=== PATIENT | male | born 1965 | race African-American/Black ===

== ENCOUNTER 2019-06-25 18:24 | Inpatient (IN) | payer MEDICAID ==
[~2019-06-25] VITALS: Ht 167.6 cm; Wt 79.4 kg
[2019-06-25] MEDS ORDERED: CIPRO500 MG PO (18:35)
[2019-06-25] MEDS ORDERED: ROCEPHIN 1 GM/D51 G1 IM (18:35)
[2019-06-25] MEDS ORDERED: NORVASC10 MG PO (18:36)
[2019-06-25] MEDS ORDERED: SMZ-TMP DS 800-1 TAB PO (18:36)
[2019-06-25] MEDS ORDERED: NOVOLIN 70/30 110 ML (18:36)
[2019-06-25] MEDS ORDERED: NOVOLIN 70/30 110 ML SC (18:37)
[2019-06-25] MEDS ORDERED: PAMELOR 25 MG C25 MG PO (18:37)
[2019-06-25] MEDS ORDERED: COZAAR100 MG PO (18:38)
[2019-06-25 18:57] LABS: HEMATOCRIT 31.3 % (42.0-54.0); HEMOGLOBIN 9.7 g/dL (13.5-17.5); LYMPHOCYTES 13.7 % (15-50); MCH 25.1 pg (26.0-34.0); MCV 80.9 fL (80.0-100.0); MEAN PLATELET VOLUME 8.5 fL (7.4-10.4); NEUTROPHILS 79.7 % (40-80); RBC 3.87 10x6/uL (4.20-6.10); RDW 13.2 % (11.5-14.5); WBC 10.8 10x3/uL (4.8-10.8)
[2019-06-25 18:58] LABS: PLATELET COUNT 721 10x3/uL (130-400)
--- NOTE | 2019-06-25 18:59 | NUR ---
DR. RUANO AT BEDSIDE FOR PATIENT EVAL.
--- NOTE | 2019-06-25 19:06 | NUR ---
PATIENT NOT FROM OR IN [place], PATIENT TRANSPORTED [facility] [place] [facility]
[2019-06-25 19:18] LABS: ANION GAP 12.7 mmol/L (8-16); CALCIUM 9.5 mg/dL (8.5-10.1); CARBON DIOXIDE 25.9 mmol/L (21.0-32.0); CREATININE - SERUM 1.5 mg/dL (0.6-1.3); POTASSIUM - SERUM 4.6 mmol/L (3.5-5.1)
[2019-06-25 19:23] LABS: ALBUMIN 2.7 g/dL (3.4-5.0); BILIRUBIN - TOTAL 0.11 mg/dL (0.2-1.3); PROTEIN - SERUM 9.4 g/dL (6.4-8.2)
--- NOTE | 2019-06-25 20:00 | NUR ---
ADMITTED TO ROOM ALERT AND ORIENTIATED, WOUND TO RIGHT PLANTAR ASPECT AND 2ND TOE STATES IS DIABETIC AND THATS HOW IT STARTED, ORIENTIATED TO ROOM, MARU AT BEDSIDE, SEE ASSESSMENT, CALL LIGHT IN REACH,
[2019-06-25 22:21] LABS: INR 1.15 (0.85-1.17); PROTIME 14.6 SECONDS (11.6-15.0)
[2019-06-25 22:22] LABS: APTT 36.9 SECONDS (22.8-39.4)
[2019-06-25 22:42] VITALS: BP 132/77; BMI 28.3
[2019-06-26 00:20] VITALS: BP 101/61
[2019-06-26 04:00] VITALS: BP 114/77
[2019-06-26 04:47] LABS: HEMATOCRIT 28.6 % (42.0-54.0); MCH 25.4 pg (26.0-34.0); MCHC 31.5 g/dL (31.0-37.0); MCV 80.8 fL (80.0-100.0); MEAN PLATELET VOLUME 8.4 fL (7.4-10.4); NEUTROPHILS 72.7 % (40-80); PLATELET COUNT 656 10x3/uL (130-400); RBC 3.54 10x6/uL (4.20-6.10); RDW 13.2 % (11.5-14.5)
[2019-06-26 05:11] LABS: ALBUMIN 2.3 g/dL (3.4-5.0); BILIRUBIN - TOTAL 0.17 mg/dL (0.2-1.3); CALCIUM 8.9 mg/dL (8.5-10.1); CARBON DIOXIDE 24.8 mmol/L (21.0-32.0); CREATININE - SERUM 1.6 mg/dL (0.6-1.3); MAGNESIUM - SERUM 2.1 mg/dL (1.8-2.4); POTASSIUM - SERUM 4.8 mmol/L (3.5-5.1); PROTEIN - SERUM 8.1 g/dL (6.4-8.2)
--- NOTE | 2019-06-26 06:55 | NUR ---
ALERT AND ORIENTED. CO @ BS. NPO AFTER MIDNIGHT FOR PROCEDURE TODAY. NO C/O PAIN. NO S/S OF ACUTE DISTRESS NOTED. RIGHT FOOT CELLULITIS. IV TO LEFT FOREARM, NS INFUSING @ 75ML/HR. SITE PATENT WITHOUT REDNESS OR SWELLING. DENIES ANY NEEDS AT THIS TIME. CALL LIGHT IN REACH. WILL CONTINUE TO MONITOR.
[2019-06-26 08:17] VITALS: BP 122/79
--- NOTE | 2019-06-26 09:19 | MORECARE ---
CASE MANAGEMENT DISCHARGE SUMMARY PATIENT: ODELL GRANDE UNIT: [id number] ADM DATE: 06/25/19 AGE: 53 : 67 SEX: M ROOM/BED: D.2205 AUTHOR: YULY MARTINEZ PHYSICIAN: REFERRING PHYSICIAN: ABENA BALES MD DATE OF SERVICE: 06/26/19 Discharge Plan Patient Name: ODELL GRANDE Facility: [facility]:[place] : 1965 Planned Disposition: Court\Law Enforcement Anticipated Discharge Date: Discharge Date: Expected LOS: Initial Reviewer: [email or web address] Initial Review Date: 06/26/2019 Generated: 06/26/19 10:19 am Comments DCP- Discharge Planning Updated by [email or web address]: Tiana Solo on 06/26/19 8:[address] Patient Name: ODELL GRANDE Admission Status: ER Accout number: [id number] Admission Date: 06-25-2019 : 1965 Admission Diagnosis: Attending: ABENA BALES Current LOS: 1 Anticipated DC Date: Planned Disposition: Court\Law Enforcement Primary Insurance: MEDICAID LONG-TERM PENDING Discharge Planning Comments: DC PLAN: Return to [facility]/[place] DC NEEDS: Escort back to [facility]/[place]. Patient is currently an inmate at [facility]. He will return there upon discharge from hospital. He will transport back via AD arrangements. CM will continue to follow and assist as needed with dc plans/needs. Fish Icer: Tiana Jamietito Patient Name: ODELL GRANDE Page [phone] at 0919 All edits/amendments must be made on the electronic document DICTATION DATE: 06/26/19918 E MARKETING SPECIALIST: MACHO 06/26/19918 RPT#: [id number] DC DATE: STATUS: ADM IN [facility] [address] [place] [address] END OF REPORT
[2019-06-26 09:21] LABS: UDS - AMPHET NEGATIVE QUAL (NEGATIVE); UDS - BARB NEGATIVE QUAL (NEGATIVE); UDS - BENZO NEGATIVE QUAL (NEGATIVE); UDS - COCAINE NEGATIVE QUAL (NEGATIVE); UDS - OPIATE NEGATIVE QUAL (NEGATIVE); UDS - PCP NEGATIVE QUAL (NEGATIVE); UDS - THC NEGATIVE QUAL (NEGATIVE)
[2019-06-26 10:06] LABS: BACTERIA FEW /hpf (NEGATIVE); BILIRUBIN NEGATIVE (NEGATIVE); EPITHELIAL CELLS OCC /hpf (0-5); GLUCOSE 50 mg/dL (NEGATIVE); KETONE NEGATIVE (NEGATIVE); NITRITE NEGATIVE (NEGATIVE); RED CELLS - URINE 0-5 /hpf (0-5); SPECIFIC GRAVITY 1.015 (1.005-1.020); UROBILINOGEN NORMAL (NORMAL); WHITE CELLS - URINE RARE /hpf (NEGATIVE)
--- NOTE | 2019-06-26 10:30 | NUR ---
GAVE PATIENT PRE OP MEDS
--- NOTE | 2019-06-26 11:57 | NUR ---
I have reviewed this patient and I concur with the Shift Assessment completed by the Licensed Practical Nurse today this shift.
--- NOTE | 2019-06-26 12:00 | NUR ---
TAKEN TO SURGERY BY OR STAFF
[2019-06-26 14:02] VITALS: BP 120/78
--- NOTE | 2019-06-26 14:04 | NUR ---
RECEIVED PATIENT FROM RECOVERY. ALERT AND ORIENTED. NO C/O PAIN. NO S/S OF ACUTE DISTRESS NOTED. DRESSING TO RIGHT FOOT, C/D/I. VITALS WNL. DENIES ANY NEEDS AT THIS TIME. CO @ BS. CALL LIGHT IN REACH. WILL CONTINUE TO MONITOR.
--- NOTE | 2019-06-26 16:41 | NUR ---
PT HAD SURGERY TODAY ON HIS RT FOOT. US CANNOT BE DONE WITH DRESSINGS IN PLACE. PER JEANNE Gomez RN, DRESSINGS CANNOT BE MOVED TONIGHT BUT CAN BE MOVED TOMORROW. DO U/S TOMORROW. LIZZETTE JACOME PT INFORMED
[2019-06-26 17:59] VITALS: BP 136/74
--- NOTE | 2019-06-26 18:16 | NUR ---
MRI RT FOOT ORDERED BY DR HASSAN. IN LOOKING AT PATIENTS PRIOR XRAY THERE IS A METAL FOREIGN BODY IN THE PLANTAR SOFT TISSUES. PT HAD AN I&D TODAY, RE XRAYED THE FOOT PER THE RADIOLOGIST DR LAY AND THE FOREIGN BODY IS STILL SEEN. I AM UNABLE TO DO THE MRI DUE TO THE UNKNOWN FOREIGN BODY. I SPOKE WITH DR HASSAN AND HE WANTED A CT RT FOOT WITH CONTRAST INSTEAD. I PUT THE ORDER IN, INFORMED THE PATENT SOLICITOR AND LET THE PATIENTS NURSE KNOW WELL.
--- NOTE | 2019-06-26 18:41 | NUR ---
ALERT AND ORIENTED. NO C/O PAIN. NO S/S OF ACUTE DISTRESS NOTED. DENIES ANY NEEDS AT THIS TIME. CALL LIGHT IN REACH. WILL CONTINUE TO MONITOR.
[2019-06-26 22:42] VITALS: BP 124/81
[2019-06-27 01:42] VITALS: BP 104/63
--- NOTE | 2019-06-27 03:10 | NUR ---
PT RESTING IN BED. EYES CLOSED. NO SIGNS OF DISTRESS. BREATHING EVEN AND UNLABROED. IV SITE LT FA DRESSING CLEAN DRY AND INTACT. NO SIGNS OF INFECTION OR INFULTRATION. SKIN CLEAN DRY AND INTACT. LUNG SOUNDS CLEAR. BOWEL SOUNDS ACTIVE. RT FOOT DRESSING CLEAN DRY AND INTACT. WILL CONTINUE PLAN OF CARE. CALL LIGHT IN REACH. BED LOWERED AND LOCKED. BED RAILS UPX2. GUARD AT BEDSIDE.
[2019-06-27 04:50] LABS: BASOPHILS 0.1 % (0-2); EOSINOPHILS 2.5 % (0-7); HEMATOCRIT 27.9 % (42.0-54.0); HEMOGLOBIN 8.6 g/dL (13.5-17.5); IMMATURE GRANULOCYTES 0.9 % (0-5); LYMPHOCYTES 21.7 % (15-50); MCH 25.1 pg (26.0-34.0); MCHC 30.8 g/dL (31.0-37.0); MCV 81.3 fL (80.0-100.0); MEAN PLATELET VOLUME 8.5 fL (7.4-10.4); MONOCYTES 8.4 % (2-11); NEUTROPHILS 66.4 % (40-80); PLATELET COUNT 642 10x3/uL (130-400); RBC 3.43 10x6/uL (4.20-6.10); RDW 13.3 % (11.5-14.5); WBC 6.9 10x3/uL (4.8-10.8)
[2019-06-27 05:04] LABS: ANION GAP 13.6 mmol/L (8-16); CALCIUM 8.8 mg/dL (8.5-10.1); CARBON DIOXIDE 24.6 mmol/L (21.0-32.0); CREATININE - SERUM 1.5 mg/dL (0.6-1.3); MAGNESIUM - SERUM 2.1 mg/dL (1.8-2.4); POTASSIUM - SERUM 5.2 mmol/L (3.5-5.1); VANCOMYCIN - TROUGH 18.7 ug/mL (10.0-20.0)
[2019-06-27 06:18] VITALS: BP 157/92
--- NOTE | 2019-06-27 07:31 | NUR ---
PT IS RESTING IN BED WITH EYES OPEN. RESPIRATIONS ARE EVEN AND UNLABORED. GUARD AT BEDSIDE. LLE SHAKLED TO BED. PT IS AAO X 4. RLE DRESSING NOTED AND CDI. PT DENIES PRESENCE OF PAIN TO BLE. PT DENIES PRESENCE OF N/V/DYSPNEA AT THIS TIME. BED IS IN THE LOWEST POSITION. CALL LIGHT AND BEDSIDE TABLE ARE WITHIN REACH. SIDE RAILS X 2. PT DENIES FURTHER NEEDS. WILL CONT TO MONITOR.
[2019-06-27 08:41] VITALS: BP 129/83
[2019-06-27 09:08] VITALS: BMI 28.2
--- NOTE | 2019-06-27 12:02 | NUR ---
ANNIE FROST APRN NOTIFIED OF PT BLOD SUGAR OF 406. TELEPHONE ORDERS RECD ARE CHANGE PT TO HIGH RESISTANCE SLIDING SCALE FOR HUMALOG AND GIVE DOSE DIFFERENCE PER SLIDING SCALE. WILL PLACE ORDERS AND ADMINISTER.
--- NOTE | 2019-06-27 12:20 | NUR ---
CONSENTS FOR RIGHT SECOND TOE AMPUTATION BY DR HASSAN SIGNED BY PT. GUARD AT BEDSIDE. PT DENIES FURTHER QUESTIONS/CONCERNS/NEEDS. SIGNED CONSENTS PLACED IN PT CHART.
[2019-06-27 12:25] VITALS: BP 140/84
--- NOTE | 2019-06-27 15:07 | NUR ---
PT STATES FEELINGS OF LOW BLOOD SUGAR. FSBS OBTAINED AND 39. ANNIE FROST APRN NOTIFIED AND TELEPHONE ORDERS RECD ARE TO INITIATE HYPOGLYCEMIA PROTOCOL. ORDERS PLACED. PT GIVEN ORANGE JUICE AND MONIQUE CRACKERS. SEE EMAR FOR PROTOCOL. PT IS AAO X 4. GUARD AT BEDSIDE. BED IS IN THE LOWEST POSITION. CALL LIGHT AND BEDSIDE TABLE ARE WITHIN REACH. SIDE RIALS X 2. WILL CONT TO MONITOR.
[2019-06-27 15:32] VITALS: Ht 167.6 cm; Wt 79.4 kg
--- NOTE | 2019-06-27 16:17 | NUR ---
DRESSING CHANGED TO RLE PER ORDER. DRESSING REMOVED PREVIOUSLY FOR DOPPLER. PT TOLERATED WELL. GUARD AT BEDSIDE. BED IS IN THE LOWEST POSITION. CALL LIGHT AND BEDSIDE TABLE ARE WITHIN REACH. SIDE RAILS X 2. PT DENIES FURTHER NEEDS. WILL CONT TO MONITOR.
[2019-06-27 17:29] VITALS: BP 141/87
[2019-06-27 19:00] VITALS: BP 163/90
--- NOTE | 2019-06-28 02:49 | NUR ---
PT RESTING IN BED. EYES CLOSED. NO SIGNS OF DSITRESS. BREATHING EVEN AND UNLABORED. IV SITE LT FA DRESSING CLEAN DRY AND INTACT. NO SIGNS OF INFECTION OR INFULTRATION. LUNG SOUNDS CLEAR. BOWEL SOUNDS ACTIVE. RT FOOT DRESSING CLEAN DRY AND INTACT. GUARD AT BEDSIDE. WILL CONTINUE PLAN OF CARE. CALL LIGHT IN REACH. BED LOWERED AND LOCKED. BED RAILS UPX2.
--- NOTE | 2019-06-28 03:00 | NUR ---
I have reviewed this patient and I concur with the Shift Assessment completed by the Licensed Practical Nurse today this shift.
[2019-06-28 04:38] LABS: BASOPHILS 0.2 % (0-2); EOSINOPHILS 2.3 % (0-7); HEMATOCRIT 30.1 % (42.0-54.0); HEMOGLOBIN 9.2 g/dL (13.5-17.5); IMMATURE GRANULOCYTES 0.6 % (0-5); LYMPHOCYTES 18.9 % (15-50); MCH 25.1 pg (26.0-34.0); MCHC 30.6 g/dL (31.0-37.0); MCV 82.2 fL (80.0-100.0); MEAN PLATELET VOLUME 8.5 fL (7.4-10.4); MONOCYTES 5.6 % (2-11); NEUTROPHILS 72.4 % (40-80); PLATELET COUNT 674 10x3/uL (130-400); RBC 3.66 10x6/uL (4.20-6.10); RDW 13.4 % (11.5-14.5); WBC 6.6 10x3/uL (4.8-10.8)
[2019-06-28 04:58] LABS: ANION GAP 10.1 mmol/L (8-16); CALCIUM 9.2 mg/dL (8.5-10.1); CARBON DIOXIDE 28.6 mmol/L (21.0-32.0); CREATININE - SERUM 1.5 mg/dL (0.6-1.3); POTASSIUM - SERUM 4.7 mmol/L (3.5-5.1)
[2019-06-28 06:20] VITALS: BP 157/94
--- NOTE | 2019-06-28 07:42 | NUR ---
ALERT AND OREINTED X4. DRESSING INTACT TO RT. FOOT. HIBICLENS DONE AND CONTINUES NPO STATUS PENDING SURGERY. IV TO LEFT FOREARM WITH IVFR INFUSING AT 100CC HR WITH NO S/S OF INFECTION/INFILTRATION. DENIES ANY PAIN OR DISCOMFORT AT THIS TIME. ENCOURAGED TO USE CALL LIGHT FOR ASSSIT.
[2019-06-28 09:29] VITALS: BP 143/86
--- NOTE | 2019-06-28 13:11 | NUR ---
PATIENT CONTINUES NPO STATUS WITH SURGERY STATING HE IS NEXT CASE. STABLE AT THIS TIME WITH NO COMPLAINTS NOTED
[2019-06-28 13:51] VITALS: BP 172/98
--- NOTE | 2019-06-28 14:57 | NUR ---
PUS NOTED AROUND TOE AND IN WOUND ON BOTTOM OF FOOT WHEN BANDAGE REMOVED.
[2019-06-28 15:47] VITALS: BP 145/78
--- NOTE | 2019-06-28 15:57 | NUR ---
PATIENT RETURNED TO ROOM ALERT AND ORIENTED. DRESSING INTACT TO RLE WITH PEDAL PULSES NOTED. DENEIS ANY PAIN OR DISCOMFORT AT THIS TIME. ENCOURAGED TO USE CALL LIGHT FOR ASSIT.
[2019-06-28 17:52] VITALS: BP 99/51
--- NOTE | 2019-06-28 19:20 | NUR ---
ALERT AND ORIENTED, WATCHING TV WHEN ENTERING THE ROOM. PATIENT HAS RIGHT LOWER EXTREMETY ELEVATED ON PILLOWS, X 2. PATIENT RIGHT FOOT IS WRAPPED IN LAMINE BANDAGE, SECURED, CLEAN, DRY, AND INTACT. PATIENT LEG ABOVE DRESSING WARM TO TOUCH, NO EDMEA NOTED. PATIENT TOES WARM TO TOUCH, WIGGLES TOES UPON REQUEST. STATES PAIN IS CURRENTLY 5/10. RECEIVED ORAL PAIN MEDICATION ON PREVIOUS SHIFT. PATIENT STATES PAIN HAS A "ITCHING AND TINGLING" LIKE SENSATION AND AT TIMES FEELS "DULL" OR "DEEP". DENIES OTHER PAIN. PATIENT HAS LEFT FOREARM IV THAT IS INFUSING NS AT THIS TIME. DENIES FURTHER NEEDS. SPOKE WITH PATIENT ABOUT DIABETES. ASKED PATIENT IF HE NEEDED A SNACK AT THIS TIME, PATIENT DENIED. CALL LIGHT IN REACH OF PATIENT. CLOSE TO NURSES STATION FOR CONTINUAL MONITORING. BED LOCKED AND LOWERED. ENCOURAGED PATIENT TO USE CALL LIGHT WHEN IN NEED OF ASSISTANCE TO BATHROOM. REITERATED THE IMPORTANCE OF NWB TO THE RIGHT EXTREMETY. PATIENT VERBALIZES UNDERSTANDING. CPOC.
[2019-06-28 20:00] VITALS: BP 143/90
--- NOTE | 2019-06-28 20:30 | NUR ---
REQUESTED SANDWICH. PROVIDED. ASKED WHEN NEXT PAIN MEDICINE IS AVAILABLE, GAVE PATIENT TIME. PATIENT ASKED IF HE COULD HAVE WHEN AVAILABLE, STATES PAIN IS NOW A 7/10. DENIES FURTHER NEEDS.
--- NOTE | 2019-06-28 21:00 | NUR ---
ASSESSED FSBS, 141. ADMINISTERED PAIN MEDICINE PER ORDER. PATIENT TOLERATED WELL. DENIES FURTHER NEEDS. CPOC.
--- NOTE | 2019-06-28 22:45 | NUR ---
ASSESSED SURGICAL SITE. REMAINS CLEAN, DRY, AND INTACT. NO SIGNS OF POST OP BLEEDING. TOES REMAIN WARM TO TOUCH. PATIENT STILL ABLE TO WIGGLE TOES UPON COMMAND. RAISES RLE WITH NO ISSUES. NO SWELLING NOTED ABOVE OR BELOW WRAPPING. PROVIDED EDUCATION TO PATIENT PER REQUEST ABOUT DIABETES AND WOUND HEALING. PATIENT RECEPTIVE TO TEACHING. DENIES FURTHER NEEDS AT THIS TIME. CALL LIGHT REMAINS IN REACH. CPOC.
[2019-06-29] VITALS: BP 145/81
--- NOTE | 2019-06-29 00:59 | NUR ---
ANSWERED PATIENT CALL LIGHT. REQUESTING PAIN MEDICINE FOR 10/10 PAIN. PATIENT STATES PAIN IS "ITCHY AND DULL". DENIES FURTHER NEEDS. CALL LIGHT IN REACH. CPOC.
[2019-06-29 04:00] VITALS: BP 139/85
--- NOTE | 2019-06-29 04:44 | NUR ---
I have reviewed this patient and I concur with the Shift Assessment completed by the Licensed Practical Nurse today this shift.
--- NOTE | 2019-06-29 05:45 | NUR ---
I have reviewed this patient and I concur with the Shift Assessment completed by the Licensed Practical Nurse today this shift.
[2019-06-29 06:14] LABS: BASOPHILS 0.1 % (0-2); EOSINOPHILS 2.9 % (0-7); HEMATOCRIT 29.9 % (42.0-54.0); HEMOGLOBIN 9.2 g/dL (13.5-17.5); IMMATURE GRANULOCYTES 0.6 % (0-5); LYMPHOCYTES 20.2 % (15-50); MCH 25.3 pg (26.0-34.0); MCHC 30.8 g/dL (31.0-37.0); MCV 82.4 fL (80.0-100.0); MEAN PLATELET VOLUME 8.5 fL (7.4-10.4); MONOCYTES 6.8 % (2-11); NEUTROPHILS 69.4 % (40-80); PLATELET COUNT 701 10x3/uL (130-400); RBC 3.63 10x6/uL (4.20-6.10); RDW 13.4 % (11.5-14.5)
[2019-06-29 06:30] LABS: WBC 8.9 10x3/uL (4.8-10.8)
[2019-06-29 06:36] LABS: ANION GAP 9.4 mmol/L (8-16); CALCIUM 9.4 mg/dL (8.5-10.1); CARBON DIOXIDE 27.7 mmol/L (21.0-32.0); CREATININE - SERUM 1.3 mg/dL (0.6-1.3); MAGNESIUM - SERUM 1.7 mg/dL (1.8-2.4); POTASSIUM - SERUM 4.1 mmol/L (3.5-5.1); VANCOMYCIN - TROUGH 14.5 ug/mL (10.0-20.0)
[2019-06-29 08:24] VITALS: BP 157/92
--- NOTE | 2019-06-29 09:00 | NUR ---
ALERT AND ORIENTED X4. DRESSING INTACT TO RLE WITH GOOD MOVEMENT OF DIGITS WITH CAP REFILL <3 SEC. DENIES ANY PAIN OR DISCOMFORT. IVF INFUSING AT PRESCRIBED RATE WITH NO S/S OF INFECTION/INFILTRATION. ENCOURAGED TO USE CALL LIGHT FOR ASSSIT
--- NOTE | 2019-06-29 11:21 | OP ---
PATIENT NAME: ODELL OSMAN MEDICAL RECORD: [id number] :[birth year] LOCATION:D.MS [id number] ADMISSION DATE:06/25/19 SURGEON: ITALO HASSAN DO DATE OF OPERATION: 06/28/2019 PROCEDURE PERFORMED: Right second toe amputation. PREOPERATIVE DIAGNOSIS: Right second toe osteomyelitis and right foot infection. POSTOPERATIVE DIAGNOSIS: Right second toe osteomyelitis and right foot infection. INDICATIONS: Mr. Osman is a 53-year-old male who is an inmate who had a right foot infection and had an I and D done on 06/26/2019 by another surgeon, asked me to take a look at it and I got a CT as he could not get an MRI due to having a needle in the bottom of his foot, they were not doing MRI, so got a CT and that did show osteomyelitis and destruction of the second toe at the PIP joint. I informed the patient that we would need to toe off and that it would probably not heal due to his severe diabetes and poor healing. He has also been on IV antibiotics for a couple days and dealing with that ulcers on his feet for months. He said he did have an incision that was done on the plantar aspect of his foot for the purulence that was pouring out of it prior to the surgery. I informed them he may need another amputation even a below-knee amputation. He is okay with that, he wanted to do his toe at the time and see if we could save his foot. I informed him that he will likely need another amputation, but we will try. He is okay with that and signed a consent as were the other risks including continued infection, bleeding, damage to nerves and vessels, need for further surgery, blood clots, and even . SURGEON: Italo Hassan DO DESCRIPTION OF PROCEDURE: The patient was taken to operative suite and laid in supine position, given general anesthetic. LMA was placed. He is on antibiotics on the floor; therefore, not giving preop antibiotics. We then prepped and draped the right foot. A timeout was performed; everyone was in agreement with the correct side, site, patient and procedure. I then made an elliptical incision around the base of the second toe and the toe was removed and then rongeured back the second metatarsal, removing all the cartilage. We then irrigated the tip of the foot and then the other side that was open on the plantar aspect, was in line with the second ray. I did a debridement with curettes and irrigated out with a liter of normal saline until there is no purulence pouring out of it. This was then packed with quarter-inch gauze and the toe site amputation site was closed by Jama Vizcarra, certified surgical neurology physician assistant with 2-0 Prolene in a horizontal mattress fashion. He was then dressed with Adaptic, 4 x 4s, Kerlix, and Joel wrap. He was awakened and taken to recovery in stable condition. BLOOD LOSS: Minimal. COMPLICATIONS: None. TRANSINT:[id number] Voice Confirmation ID: [id number] DOCUMENT ID: [id number] OPERATIVE REPORT [id number] ODELL OSMAN,ITALO Goncalves DO at 1121 CC: [id number] DICTATION DATE: 06/28/19 1502 OPTICAL GOODS DRILL OPERATOR: 06/28/19 2157 ADM IN [facility] [address] [place] [address]
[2019-06-29 12:54] VITALS: BP 107/52
--- NOTE | 2019-06-29 19:10 | NUR ---
PATIENT ALERT AND ORIENTED WATCHING TV. RIGHT LOWER EXTREMETY WRAPPED WITH LAMINE BANDAGE FROM ANKLE TO TOES. TOES WARM TO TOUCH. PATIENT WIGGLES ON COMMAND. DENIES PAIN AT THIS TIME. PATIENT HAS NO SWELLING IN THE RIGHT EXTREMETY AT THIS TIME. PATIENT ASKED ABOUT POSSIBLE DC. SPOKE WITH PATIENT ABOUT IV ABX. HE STATED THAT HE SPOKE WITH THE DOCTOR ABOUT IT THIS MORNING AND HE WAS "JUST CHECKING TO SEE IF THAT CHANGED." PATIENT DENIES FURTHER NEEDS AT THIS TIME.C ALL LIGHT IN REACH. CPOC.
[2019-06-29 20:04] VITALS: BP 148/83
--- NOTE | 2019-06-29 23:00 | NUR ---
REASSESSED SURGICAL SITE. TOES REMAIN WARM. NO SWELLING. WIGGLES TOES AND LIFTS EXTREMETY WITH NO ISSUES. DENIES FURTHER NEEDS. CPOC.
--- NOTE | 2019-06-30 01:46 | NUR ---
RESTING WITH NO SIGNS OR SYMPTOMS OF DISTRESS AT THIS TIME. CPOC.
--- NOTE | 2019-06-30 03:00 | NUR ---
I have reviewed this patient and I concur with the Shift Assessment completed by the Licensed Practical Nurse today this shift.
[2019-06-30 04:00] VITALS: BP 151/94
--- NOTE | 2019-06-30 05:45 | NUR ---
ADMINISTERING PAIN MEDICATION TO PATIENT AND PATIENT ACCIDENTALLY HIT THIS NURSES HAND AND KNOCKED NORCO 5 TO FLOOR. WASTED IN SHARPS WITH ANIRUDH MORAN. PULLED ANOTHER NORCO AND ADMINISTERED PER ORDER. CPOC.
[2019-06-30 05:54] LABS: BASOPHILS 0.1 % (0-2); HEMATOCRIT 28.3 % (42.0-54.0); HEMOGLOBIN 8.5 g/dL (13.5-17.5); IMMATURE GRANULOCYTES 0.5 % (0-5); LYMPHOCYTES 23.1 % (15-50); MCV 83.2 fL (80.0-100.0); MEAN PLATELET VOLUME 8.5 fL (7.4-10.4); MONOCYTES 7.5 % (2-11); NEUTROPHILS 64.8 % (40-80); PLATELET COUNT 659 10x3/uL (130-400); RDW 13.5 % (11.5-14.5)
[2019-06-30 06:01] LABS: ANION GAP 11.3 mmol/L (8-16); CARBON DIOXIDE 27.9 mmol/L (21.0-32.0); CREATININE - SERUM 1.3 mg/dL (0.6-1.3); MAGNESIUM - SERUM 1.8 mg/dL (1.8-2.4); POTASSIUM - SERUM 4.2 mmol/L (3.5-5.1)
--- NOTE | 2019-06-30 08:00 | NUR ---
ALERT AND ORIENTED X4. DRESSING INTACT TO RLE. GOOD ROM OF DIGITS AND CAP REFILL<3 SEC. DENIES ANY PAINOR DISCOMFORT AT THIS TIME. INSTRUCTED ON BLOOD SUGAR CONTROL AND OTHER WAYS FOR IMPROVED WOUND HEALING. ENCOURAGED TO USE CALL LIGHT FOR ASSSIT.
[2019-06-30 08:33] VITALS: BP 168/98
[2019-06-30] MEDS ORDERED: VANCOMYCIN 1 GM/1 G1 IV (09:25)
--- NOTE | 2019-06-30 12:13 | NUR ---
DRESSIGN CHANGD TO RT. FOOT USING ASEPTIC TECHNIQUE. WOUND CLEANED WITH SALINE AND PATTED DRY WITH 4X4'S. PACKED WITH IODOFORM GAUZE AND COVERED WITH PETROLEUM GAUZE AND REINFORCED WITH 4X4 AND CHRISTEN AND SECURED WITH LAMINE WRAP.. HYDOCODONE GIVEN PRIOR FOR PAIN MANAGEMENT AND EFFECTIVE.
--- NOTE | 2019-06-30 19:00 | NUR ---
BEDSIDE REPORT RECEIVED AND CARE OF PT ASSUMED. PT LYING IN SUPINE POSITION WATCHING TV. IV TO LEFT FA INFILTRATED AND SWOLLEN. STOPPED IV FLUIDS...WILL RE-SITE. DRESSING ON RIGHT FOOT CLEAN AND DRY. WILL MONITOR FOR NEEDS.
[2019-06-30 19:44] VITALS: BP 133/75
--- NOTE | 2019-06-30 21:00 | NUR ---
RE-SITED IV TO RIGHT FA USING 20 GUAGE CATHETER IN ONE STICK. IV FLUIDS RE-STARTED.
--- NOTE | 2019-06-30 21:04 | NUR ---
HS MEDICATIONS GIVEN TO INCLUDE A NORCO 10 PO PER REQUEST FOR PAIN. FSBS 326 THIS CHECK REQUIRING COVERAGE WITH 20 UNITS OF INSULIN PER SLIDING SCALE.
--- NOTE | 2019-06-30 21:25 | NUR ---
HS SNACK GIVEN: TURKEY SANDWICH TRAY WITH GRAPES.
--- NOTE | 2019-07-01 01:17 | NUR ---
PT WOKE UP WITH THE SWEATS. FSBS 56 THIS CHECK. GAVE ORANGE JUICE, MONIQUE CRACKERS, AND PEANUT BUTTER.
[2019-07-01 04:12] VITALS: BP 150/97
[2019-07-01 04:24] LABS: BASOPHILS 0.2 % (0-2); EOSINOPHILS 4.3 % (0-7); HEMATOCRIT 31.5 % (42.0-54.0); HEMOGLOBIN 9.6 g/dL (13.5-17.5); IMMATURE GRANULOCYTES 0.7 % (0-5); LYMPHOCYTES 23.4 % (15-50); MCH 25.3 pg (26.0-34.0); MCHC 30.5 g/dL (31.0-37.0); MCV 82.9 fL (80.0-100.0); MEAN PLATELET VOLUME 8.6 fL (7.4-10.4); MONOCYTES 4.7 % (2-11); NEUTROPHILS 66.7 % (40-80); PLATELET COUNT 664 10x3/uL (130-400); RDW 13.5 % (11.5-14.5); WBC 8.7 10x3/uL (4.8-10.8)
[2019-07-01 08:16] VITALS: BP 159/72
--- NOTE | 2019-07-01 08:17 | MORECARE ---
CASE MANAGEMENT DISCHARGE SUMMARY PATIENT: ODELL GRANDE UNIT: [id number] ADM DATE: 06/25/19 AGE: 53 : 67 SEX: M ROOM/BED: D.2205 AUTHOR: YULY MARTINEZ PHYSICIAN: REFERRING PHYSICIAN: ABENA BALES MD DATE OF SERVICE: 07/01/19 Discharge Plan Patient Name: ODELL GRANDE Facility: [facility]:[place] : 1965 Planned Disposition: Court\Law Enforcement Anticipated Discharge Date: Discharge Date: Expected LOS: Initial Reviewer: [email or web address] Initial Review Date: 06/26/2019 Generated: 07/01/19 9:17 am Comments DCP- Discharge Planning Updated by [email or web address]: Dianna Sousa on 07/01/19 7:[address] Patient Name: ODELL GRANDE Encounter No: [id number] : 1965 Primary Insurance: MEDICAID GROUP HOME PENDING Anticipated DC Date: Planned Disposition: Court\Law Enforcement External Planned Provider: : DCP follow-up note: DC NEEDS: Escort back to [facility]/[place]. Patient is currently an inmate at [facility]. He will return there upon discharge from hospital. He will transport back via [facility] arrangements. CM will continue to follow and assist as needed with dc plans/needs. 06/29 late entry Called Shahnaz from [facility]. Faxed updated clinical. Shahnaz stated patient will return to the same unit upon DC. Patient will require PICC line placement to have IV Vancomycin post dc. PICC line is scheduled to be placed on 06/30. CM will follow and assist as needed. Dianna Sousa MSN,RN,CM DCP- Discharge Planning Updated by [email or web address]: Tiana Solo on 06/26/19 8:[address] Patient Name: ODELL GRANDE Admission Status: ER Accout number: [id number] Admission Date: 06-25-2019 : 1965 Admission Diagnosis: Attending: ABENA BALES Current LOS: 1 Anticipated DC Date: Planned Disposition: Court\Law Enforcement Primary Insurance: MEDICAID GROUP HOME PENDING Discharge Planning Comments: DC PLAN: Return to [place] [facility]/[place] DC NEEDS: Escort back to [facility]/[place]. Patient is currently an inmate at [facility]. He will return there upon discharge from hospital. He will transport back via [facility] arrangements. CM will continue to follow and assist as needed with dc plans/needs. Mine Expert: Tiana Myles DP export: 06/26/19 8:19 a Patient Name: ODELL GRANDE Page [phone] at 0817 All edits/amendments must be made on the electronic document DICTATION DATE: 07/01/19816 CONSTRUCTION DRILLER: MACHO 07/01/19816 RPT#: [id number] DC DATE: STATUS: ADM IN [facility] [address] [place] [address] END OF REPORT
--- NOTE | 2019-07-01 09:08 | NUR ---
PT RESTING IN BED WITH GUARD AT BEDSIDE. RESP EVEN AND UNLABORED, DENIES PAIN AT THIS TIME. IV TO RIGHT FOREARM WITH NS @ 100ML/HR INFUSING VIA PUMP. SITE WITHOUT REDNESS OR EDEMA. DRESSING C/D/I TO RIGHT FOOT. HANDCUFF IN PLACE TO LEFT ANKLE. DENIES FURTHER NEEDS AT THIS TIME. CL WITHIN REACH. ENCOURAGED TO CALL WITH NEEDS. CONTINUE POC
[2019-07-01 09:15] LABS: ALBUMIN 2.6 g/dL (3.4-5.0); BILIRUBIN - TOTAL 0.13 mg/dL (0.2-1.3); CALCIUM 9.2 mg/dL (8.5-10.1); CARBON DIOXIDE 27.5 mmol/L (21.0-32.0); CREATININE - SERUM 1.3 mg/dL (0.6-1.3); POTASSIUM - SERUM 4.5 mmol/L (3.5-5.1); PROTEIN - SERUM 7.8 g/dL (6.4-8.2)
[2019-07-01 13:39] VITALS: BP 156/76
--- NOTE | 2019-07-01 14:58 | MORECARE ---
CASE MANAGEMENT DISCHARGE SUMMARY PATIENT: ODELL GRANDE UNIT: [id number] ADM DATE: 06/25/19 AGE: 53 : 67 SEX: M ROOM/BED: D.2205 AUTHOR: YULY MARTINEZ PHYSICIAN: REFERRING PHYSICIAN: ABENA BALES MD DATE OF SERVICE: 07/01/19 Discharge Plan Patient Name: ODELL GRANDE Facility: [facility]:[place] : 1965 Planned Disposition: Court\Law Enforcement Anticipated Discharge Date: Discharge Date: Expected LOS: Initial Reviewer: [email or web address] Initial Review Date: 06/26/2019 Generated: 07/01/19 3:58 pm Comments DCP- Discharge Planning Updated by [email or web address]: Dianna Sousa on 07/01/19 1:[address] Appended by Dianna Sousa on 07/01/2019 14:53 CDT: Patient is currently an inmate at [facility]. He will return there upon discharge from hospital. He will transport back via [facility] arrangements. CM will continue to follow and assist as needed with dc plans/needs. 06/29 late entry Called Shahnza from [facility]. Faxed updated clinical. Shahnaz stated patient will return to the same unit upon DC. Patient will require PICC line placement to have IV Vancomycin post dc. PICC line is scheduled to be placed on 06/30. CM will follow and assist as needed. 06/30- SPOKE WITH SHAHNAZ FOR DC. CLINICALS SENT. PATIENT WILL RETURN TO SAME UNIT IN [place]. NURSING CAN CALL REPORT TO [phone]. THE DOC TO DOC CAN BE CALLED TO DR CALDERON AT [phone]. NURSING SPOKE WITH GUARD TO ARRANGE TRANSPORTATION. Dianna Sousa MSN,RN,CM DCP- Discharge Planning Updated by [email or web address]: Tiana Solo on 06/26/19 8:[address] Patient Name: ODELL GRANDE Admission Status: ER Accout number: [id number] Admission Date: 06-25-2019 : 1965 Admission Diagnosis: Attending: ABENA BALES Current LOS: 1 Anticipated DC Date: Planned Disposition: Court\Law Enforcement Primary Insurance: MEDICAID NURSING HOME PENDING Discharge Planning Comments: DC PLAN: Return to [facility]/[place] DC NEEDS: Escort back to [facility]/[place]. Patient is currently an inmate at [facility]. He will return there upon discharge from hospital. He will transport back via [place] arrangements. CM will continue to follow and assist as needed with dc plans/needs. Bench Hand Machine: Tiana Solo Last DP export: 07/01/19 7:17 a Patient Name: ODELL GRANDE Page [phone] at 6598 All edits/amendments must be made on the electronic document DICTATION DATE: 07/01/191457 SPECIALIZED LANGUAGE INSTRUCTOR: MACHO 07/01/191457 RPT#: [id number] DC DATE: STATUS: ADM IN [facility] [address] [place] [address] END OF REPORT
[2019-07-01 16:20] VITALS: BP 153/89
--- NOTE | 2019-07-01 17:37 | OP ---
PATIENT NAME: ODELL GRANDE MEDICAL RECORD: [id number] :[birth year] LOCATION:D.MS Gomez2205 ADMISSION DATE:06/25/19 SURGEON: JONNA RUANO MD DATE OF OPERATION: 06/26/2019 PREOPERATIVE DIAGNOSIS: Right foot infection. POSTOPERATIVE DIAGNOSES: Right foot infection with probable osteomyelitis of the right foot. PROCEDURE: Excisional debridement of right foot. The risks, possible complications, and alternatives to the procedure were explained to the patient. He elects to proceed. OPERATIVE COURSE: The patient was conveyed to the operating room electively on 06/26/2019. General anesthesia was induced by the anesthesia staff. The right foot was sterilely prepped and draped. There were pyogenic granulomas involving the right second toe. Wound was located medially on the right second toe, the other one laterally. I curetted these and then cauterized some of the remaining granulation tissue and curettaged this as well. Through these openings, I was able to probe proximally and there was a good bit of tunneling involving this deformed toe, which appears to be fractured. I then went around to the plantar surface of the foot and where the abscess was pointing overlying the mid portion of the second metatarsal. A circular incision was accomplished here and there was drainage of purulent material, which was cultured. I then probed the abscess cavity proximally and distally. It traveled to the base of the second toe distally and then proximally almost to the proximal aspect of the second metatarsal. I excised the skin and the fat pad overlying this. I then curettaged the abscess cavity. Hemostasis was achieved with electrocautery. I then irrigated with hydrogen peroxide. The wound was then wrapped. The patient was then extubated and conveyed to post-anesthesia care unit. The dimensions of the excision were 5.6 cm in the anterior-posterior dimension and 2.0 cm in the lateral dimension and included skin, subcutaneous tissue, fat pad as well as the pyogenic granulomas. I am going to consult Dr. Hassan as I think the patient will require a digital amputation and perhaps an amputation of the metatarsal as well. TRANSINT:[id number] Voice Confirmation ID: [id number] DOCUMENT ID: [id number] JONNA RUANO MD at 7089 CC: RAMU PHILLIPS MD, ABENA BALES MD and PERI HASSAN, [id number] DICTATION DATE: 06/27/19 1536 BROOD STATION MANAGER: 06/27/19 1743 ADM IN [facility] [id number] [place] [address]
[2019-07-01 20:00] VITALS: BP 148/95
--- NOTE | 2019-07-01 22:18 | NUR ---
PT DISCHARGED TO [facility]. ESCORTED TO EXIT VIA WHEELCHAIR. RECORDS / PT INSTRUCTIONS SENT WITH PT. SENT DIABETIC SNACK WITH PT IN CASE OF HYPOGLYCEMIC EPISODE.
--- NOTE | 2019-07-02 11:11 | MORECARE ---
CASE MANAGEMENT DISCHARGE SUMMARY PATIENT: ODELL GRANDE UNIT: [id number] ADM DATE: 06/25/19 AGE: 53 : 67 SEX: M ROOM/BED: D.2205 AUTHOR: YULY MARTINEZ PHYSICIAN: REFERRING PHYSICIAN: ABENA BALES MD DATE OF SERVICE: 07/02/19 Discharge Plan Patient Name: ODELL GRANDE Facility: [facility]:[place] : 1965 Planned Disposition: Court\Law Enforcement Anticipated Discharge Date: Discharge Date: 07/01/2019 Expected LOS: Initial Reviewer: [email or web address] Initial Review Date: 06/26/2019 Generated: 07/02/19 12:11 pm Comments DCP- Discharge Planning Updated by [email or web address]: Dianna Sousa on 07/01/19 1:[address] Appended by Dianna Sousa on 07/01/2019 14:53 CDT: Patient is currently an inmate at [facility]. He will return there upon discharge from hospital. He will transport back via AD arrangements. CM will continue to follow and assist as needed with dc plans/needs. 06/29 late entry Called Shahnaz from [facility]. Faxed updated clinical. Shahnaz stated patient will return to the same unit upon DC. Patient will require PICC line placement to have IV Vancomycin post dc. PICC line is scheduled to be placed on 06/30. CM will follow and assist as needed. 06/30- SPOKE WITH SHAHNAZ FOR DC. CLINICALS SENT. PATIENT WILL RETURN TO SAME UNIT IN [place]. NURSING CAN CALL REPORT TO [phone]. THE DOC TO DOC CAN BE CALLED TO DR CALDERON AT [phone]. NURSING SPOKE WITH GUARD TO ARRANGE TRANSPORTATION. Dianna Sousa MSN,RN,CM DCP- Discharge Planning Updated by [email or web address]: Tiana Solo on 06/26/19 8:[address] Patient Name: ODELL GRANDE Admission Status: ER Accout number: [id number] Admission Date: 06-25-2019 : 1965 Admission Diagnosis: Attending: ABENA BALES Current LOS: 1 Anticipated DC Date: Planned Disposition: Court\Law Enforcement Primary Insurance: MEDICAID [facility] PENDING Discharge Planning Comments: DC PLAN: Return to [facility]/[place] DC NEEDS: Escort back to [facility]/[place]. Patient is currently an inmate at [facility]. He will return there upon discharge from hospital. He will transport back via AD arrangements. CM will continue to follow and assist as needed with dc plans/needs. Development Technician: Tiana Myles DP export: 07/01/19 1:58 p Patient Name: ODELL GRANDE Page [id number] at 1111 All edits/amendments must be made on the electronic document DICTATION DATE: 07/02/19 1111 FLOORING SALES MANAGER: MACHO 07/02/19 1111 RPT#: [id number] DC DATE:07/01/19 STATUS: DIS IN [facility] [address] [place] [address] END OF REPORT
--- NOTE | 2019-07-02 17:31 | MORECARE ---
CASE MANAGEMENT DISCHARGE SUMMARY PATIENT: ODELL GRANDE UNIT: [id number] ADM DATE: 06/25/19 AGE: 53 : 67 SEX: M ROOM/BED: D.2205 AUTHOR: YULY MARTINEZ PHYSICIAN: REFERRING PHYSICIAN: ABENA BALES MD DATE OF SERVICE: 07/02/19 Discharge Plan Patient Name: ODELL GRANDE Facility: [facility]:[place] : 1965 Planned Disposition: Court\Law Enforcement Anticipated Discharge Date: 07/01/19 Discharge Date: 07/01/2019 Expected LOS: 6 Initial Reviewer: [email or web address] Initial Review Date: 06/26/2019 Generated: 07/02/19 6:31 pm Comments DCP- Discharge Planning Updated by [email or web address]: Dianna Sousa on 07/01/19 1:[address] Appended by Dianna Sousa on 07/01/2019 14:53 CDT: Patient is currently an inmate at [facility]. He will return there upon discharge from hospital. He will transport back via AD arrangements. CM will continue to follow and assist as needed with dc plans/needs. 06/29 late entry Called Shahnaz from [facility]. Faxed updated clinical. Shahnaz stated patient will return to the same unit upon DC. Patient will require PICC line placement to have IV Vancomycin post dc. PICC line is scheduled to be placed on 06/30. CM will follow and assist as needed. 06/30- ELDA SPOKE WITH SHAHNAZ FOR DC. CLINICALS SENT. PATIENT WILL RETURN TO SAME UNIT IN [place]. NURSING CAN CALL REPORT TO [phone]. THE DOC TO DOC CAN BE CALLED TO DR CALDERON AT [phone]. NURSING SPOKE WITH GUARD TO ARRANGE TRANSPORTATION. Dianna Sousa MSN,RN,CM DCP- Discharge Planning Updated by [email or web address]: Tiana Solo on 06/26/19 8:[address] Patient Name: ODELL GRANDE Admission Status: ER Accout number: [id number] Admission Date: 06-25-2019 : 1965 Admission Diagnosis: Attending: ABENA BALES Current LOS: 1 Anticipated DC Date: Planned Disposition: Court\Law Enforcement Primary Insurance: MEDICAID [employer] PENDING Discharge Planning Comments: DC PLAN: Return to [facility] DC NEEDS: Escort back to [facility]/[place]. Patient is currently an inmate at [facility]. He will return there upon discharge from hospital. He will transport back via AD arrangements. CM will continue to follow and assist as needed with dc plans/needs. Single End Sewer: Tiana Solo Last DP export: 07/02/19 10:11 a Patient Name: ODELL GRANDE Page [id number] at 1731 All edits/amendments must be made on the electronic document DICTATION DATE: 07/02/191730 MUSHROOM GROWER: MACHO 07/02/191730 RPT#: [id number] DC DATE:07/01/19 STATUS: DIS IN [facility] [address] [place] [address] END OF REPORT
== END 2019-07-01 22:16 | DRG 617 ==
LOC: D.ER 18:24 → D.MS 18:50
PROVIDERS: Family Medicine; Orthopaedic Surgery; ADMIT Internal Medicine Nephrology; ATTEND Internal Medicine Nephrology
PROC: 0JBQ0ZZ Excision of Right Foot Subcutaneous Tissue and Fascia, Open Approach (ICD-10-PCS; 2019-06-26)
PROC: 0Y6R0Z2 Detachment at Right 2nd Toe, Mid, Open Approach (ICD-10-PCS; principal; 2019-06-28 11:30)
DX: E11.69 Type 2 diabetes mellitus with other specified complication (principal); L03.90 Cellulitis, unspecified; M86.9 Osteomyelitis, unspecified; M86.171 Other acute osteomyelitis, right ankle and foot; E87.1 Hypo-osmolality and hyponatremia; E11.628 Type 2 diabetes mellitus with other skin complications; L03.031 Cellulitis of right toe; N17.9 Acute kidney failure, unspecified; D64.9 Anemia, unspecified